=== PATIENT | female | born 1970 | race African-American/Black ===

== ENCOUNTER 2016-12-09 16:52 | Emergency (ER) | payer MEDICAID ==
[~2016-12-09 16:52] MED LIST: CYCL10 PO; DEPOP150I IM; TRAZ150 PO
== END 2016-12-09 18:23 | disposition left against medical advice (07) ==
LOC: EMS 17:00
DX: S09.90XA Unspecified injury of head, initial encounter (principal); Z53.21 Procedure and treatment not carried out due to patient leaving prior to being seen by health care provider; X58.XXXA Exposure to other specified factors, initial encounter; Y93.89 Activity, other specified; Y92.89 Other specified places as the place of occurrence of the external cause; Y99.8 Other external cause status

== ENCOUNTER 2018-03-12 17:19 | Emergency (ER) | payer MEDICAID ==
[~2018-03-12] VITALS: Ht 165.1 cm; Wt 81.8 kg
[2018-03-12] MEDS ORDERED: MUSCLE RELAXOR PO (17:38)
[2018-03-12] MEDS ORDERED: BACL10TA PO (17:38)
[2018-03-12] MEDS ORDERED: TRAM50TA4 PO (17:38)
[2018-03-12] MEDS ORDERED: MUSCLE RELAXER PO (17:38)
[2018-03-12 17:52] VITALS: BP 138/88
[2018-03-12] MEDS ORDERED: METHOCARBAMOL 500 MG TABLET PO ONE (18:00)
[2018-03-12] MEDS ORDERED: KETOROLAC TROMETHAMINE 60 MG/2 ML VIAL IM ONE (18:00)
== END 2018-03-12 18:50 | disposition home or self-care (01) ==
LOC: EMS 17:20
DX: M54.5 Low back pain (principal); G89.29 Other chronic pain; F17.210 Nicotine dependence, cigarettes, uncomplicated; F12.90 Cannabis use, unspecified, uncomplicated; Z76.0 Encounter for issue of repeat prescription
CPT/HCPCS: 96372; 99283; J1885